=== PATIENT | male | born 1980 | race Caucasian/White ===

== ENCOUNTER 2020-01-16 13:48 | Emergency (ER) | payer SELFPAY ==
[~2020-01-16 13:48] MED LIST: Sodium Chloride 0.9% 1,000 ML BAG ONE
[2020-01-16] MEDS ORDERED: Lorazepam 2 MG/ML VIAL ONE (13:53)
[2020-01-16] MEDS ORDERED: Dexamethasone 10 MG/ML VIAL ONE (13:54)
[2020-01-16] MEDS ORDERED: Famotidine In NaCl 20 mg/50 ml Premix Bag ONE (13:54)
[2020-01-16] MEDS ORDERED: diphenhydrAMINE 50 MG/ML VIAL ONE (13:54)
--- NOTE | 2020-01-16 14:36 | RAD ---
PORTABLE CHEST: Date: 01/16/2020 HISTORY: Shortness of breath. Dyspnea. FINDINGS: Heart size and mediastinum within normal limits. Subtle increased density in the right lung field pos sibly represents ground-glass infiltrate. I do not have any history to suggest pneumonia. Clinical co rrelation recommended. IMPRESSION: Vague increased density in the right base. I cannot exclude this as a ground-glass infiltrate. POS: RENU
[2020-01-16 15:10] LABS: Acetaminophen Less than 6.0 mcg/mL (10.0-30.0); Alcohol Less than 10 mg/dL (Less than 10); CK (CPK) 97 U/L (30-200); Magnesium 1.9 mg/dL (1.6-2.6); Salicylate Less than 8.0 mg/dL (15.0-30.0)
[2020-01-16 15:13] LABS: ALT (SGPT) 21 U/L (8-55); AST (SGOT) 17 U/L (5-34); Albumin 3.8 g/dL (3.5-5.0); Alkaline Phosphatase 60 U/L (40-110); Anion Gap 17 mmol/L (10-20); BUN (Urea Nitrogen) 14 mg/dL (8.9-20.6); Bilirubin, Total 1.2 mg/dL (0.2-1.2); Calc. Creatinine Clearance 0 mL/min (70-130); Calcium 8.2 mg/dL (7.8-10.44); Carbon Dioxide 24 mmol/L (22-29); Chloride 102 mmol/L (98-107); Estimated GFR-MDRD 64; Globulin 2.6 g/dL (2.4-3.5); Glucose 183 mg/dL (70-105); Potassium 3.6 mmol/L (3.5-5.1); Protein, Total 6.4 g/dL (6.0-8.3); Sodium 139 mmol/L (136-145)
[2020-01-16 15:14] LABS: Band 17 % (5-11); Hemoglobin 18.1 g/dL (14.0-18.0); Lymphocytes 7 % (21-51); MDiff Complete? YES; Mean Corpuscular HGB CONC 32.4 g/dL (32.0-36.0); Mean Corpuscular Hemoglobin 28.4 pg (27.0-31.0); Mean Corpuscular Volume 87.8 fL (78.0-98.0); Monocytes 4 % (0-10); Neutrophil 72 % (42-75); Platelet Count 350 thou/uL (130-400); Platelet Morphology Comment Appears Adequate; RBC Distribution Width 11.5 % (11.5-14.5); RBC Morphology Normal; Red Blood Cell (RBC) Count 6.35 mill/uL (4.70-6.10); White Blood Cell (WBC) Count 31.3 thou/uL (4.8-10.8)
[2020-01-16] MEDS ORDERED: Sodium Chloride 0.9% 250 ML 250 ML ONE (15:22)
[2020-01-16] MEDS ORDERED: Sodium Chloride 0.9% 1,000 ML ONE (15:22)
[2020-01-16] MEDS ORDERED: Azithromycin 500 MG VIAL ONE (15:22)
[2020-01-16] MEDS ORDERED: Sodium Chloride 0.9% 100 ML ONE (15:22)
[2020-01-16] MEDS ORDERED: Cefepime 2 GM VIAL ONE (15:22)
[2020-01-16 15:29] LABS: CKMB 2.6 ng/mL (0-6.6)
[2020-01-16 16:25] LABS: Bilirubin Negative (Negative); Blood, Urine Negative (Negative); Clarity Hazy (Clear); Glucose, Urine (Dipstick) 500 mg/dL (Negative); Ketone, Urine Negative (Negative); Leukocyte Negative (Negative); Nitrite Negative (Negative); Protein, Urine (Dipstick) 30 mg/dL (Neg-Trace); Urobilinogen 0.2 mg/dL (Less than 2)
[2020-01-16 16:26] LABS: RBC/HPF 0-3 HPF (0-3); Specific Gravity, Urine 1.034 (1.002-1.036)
[2020-01-16 16:27] LABS: Bacteria/HPF Rare-Few HPF (None Seen); Squamous Epithelial 0-3 HPF (0-3); WBC/HPF None Seen HPF (0-3)
[2020-01-16 16:34] LABS: Amphetamine Detected (NotDetected); Barbiturates Screen Not Detected (NotDetected); Benzodiazepine Screen Detected (NotDetected); Cocaine Metabolite Screen Not Detected (NotDetected); Medtox Control Line Valid? VALID (VALID); Methadone Not Detected (NotDetected); Methamphetamine Detected (NotDetected); Opiate Screen Not Detected (NotDetected); Oxycodone Screen Not Detected (NotDetected); Phencyclidine (PCP) Not Detected (NotDetected); THC/Cannabinoid Screen Not Detected (NotDetected); Tricyclic Screen Not Detected (NotDetected)
[2020-01-16 17:46] LABS: #Basophils 0.2 thou/uL (0.0-0.2); #Eosinphils 0.1 thou/uL (0.0-0.7); #Lymphocytes 0.7 thou/uL (1.20-3.40); #Monocytes 0.7 thou/uL (0.11-0.59); #Neutrophils 29.1 thou/uL (1.40-6.50); %Basophils 0.6 % (0.0-1.0); %Eosinophils 0.3 % (0.0-10.0); %Lymphocytes 2.4 % (21.0-51.0); %Monocytes 2.3 % (0.0-10.0); %Neutrophils 94.4 % (42.0-75.0); Hemoglobin 16.6 g/dL (14.0-18.0); Mean Corpuscular HGB CONC 32.9 g/dL (32.0-36.0); Mean Corpuscular Hemoglobin 28.8 pg (27.0-31.0); Mean Corpuscular Volume 87.3 fL (78.0-98.0); Mean Platelet Volume 6.6 fL (7.4-10.4); Platelet Count 316 thou/uL (130-400); RBC Distribution Width 11.2 % (11.5-14.5); Red Blood Cell (RBC) Count 5.76 mill/uL (4.70-6.10); White Blood Cell (WBC) Count 30.8 thou/uL (4.8-10.8)
[2020-01-16 17:58] LABS: Anion Gap 13 mmol/L (10-20); BUN (Urea Nitrogen) 14 mg/dL (8.9-20.6); Calc. Creatinine Clearance 0 mL/min (70-130); Carbon Dioxide 25 mmol/L (22-29); Chloride 104 mmol/L (98-107); Estimated GFR-MDRD 76; Glucose 145 mg/dL (70-105); Potassium 4.4 mmol/L (3.5-5.1); Sodium 138 mmol/L (136-145)
== END 2020-01-16 17:55 | disposition short-term general hospital (02) ==
LOC: MADERS 13:48
DX: T78.3XXA Angioneurotic edema, initial encounter (principal); J15.9 Unspecified bacterial pneumonia; R07.9 Chest pain, unspecified; F15.10 Other stimulant abuse, uncomplicated
CPT/HCPCS: 36415; 71045; 80053; 80306; 80307; 81003; 81015; 82550; 82553; 83605; 83735; 84484; 85025; 87040; 93005; 96365; 96367; 96375; J0456; J0692; J1100; J1200; J2060; J3490; J7050

== ENCOUNTER 2021-11-05 14:45 | Emergency (ER) | payer SELFPAY ==
[2021-11-05] MEDS ORDERED: Lidocaine 1% (PF) 30 ML VIAL ONE (14:57)
[2021-11-05] MEDS ORDERED: Boostrix 0.5 ML (Tdap) VIAL ONE (14:57)
[2021-11-05] MEDS ORDERED: Bacitracin 1 PK ONE (14:57)
[2021-11-05] MEDS ORDERED: Ibuprofen 800 MG TAB ONE (15:05)
[2021-11-05] MEDS ORDERED: Acetaminophen 325 MG TAB ONE (15:05)
[2021-11-05] MEDS ORDERED: HYDROcodone/Acetaminophen 5/325 mg Tablet ONE (16:05)
== END 2021-11-05 17:20 | disposition home or self-care (01) ==
LOC: MADERS 14:45
DX: S67.22XA Crushing injury of left hand, initial encounter (principal); S62.36 Nondisplaced fracture of neck of other metacarpal bone; F17.210 Nicotine dependence, cigarettes, uncomplicated; W20.8XXA Other cause of strike by thrown, projected or falling object, initial encounter; Y92.69 Other specified industrial and construction area as the place of occurrence of the external cause; Z23 Encounter for immunization
CPT/HCPCS: 12002; 90471; 90715; J2001